=== PATIENT | male | born 1955 | race Two or more races ===

== ENCOUNTER 2022-09-08 11:31 | Emergency (ER) | payer MEDICAID, OTHER ==
[~2022-09-08] VITALS: Ht 167.6 cm; Wt 90.0 kg
[~2022-09-08 11:31] MED LIST: ASPI300S4 PR; CLIN300C70 PO; INDO50CA82 PO; METF-370 PO; PAR20T GT; PAR20T PO
[2022-09-08 13:09] LABS: Urine Bacteria None Seen /hpf (None Seen)
[2022-09-08 13:12] LABS: Basophils # (auto) 0.1 10 ^3/uL (0-0.2); Basophils % (auto) 1.3 % (0.0-2.0); Eosinophils # (auto) 0.4 10 ^3/uL (0-0.8); Eosinophils % (auto) 6.1 % (0.0-7.0); Hematocrit 40.1 % (41.0-53.0); Hemoglobin 13.6 g/dL (13.5-17.5); Lymphocytes # (auto) 2.1 10 ^3/uL (0.4-5.4); Lymphocytes % (auto) 31.1 % (10.0-50.0); Mean Corpuscular Hgb Conc. 33.9 g/dL (32.0-36.0); Mean Corpuscular Volume 91.4 fL (80.0-100.0); Monocytes # (auto) 0.5 10 ^3/uL (0-1.3); Neutrophils # (auto) 3.7 10 ^3/uL (1.6-8.6); Neutrophils % (auto) 54.5 % (37.0-80.0); Nucleated Red Blood Cells % 0.1 %; Red Blood Cells 4.39 10^6/uL (4.5-5.90); Red Cell Distribution Width 13.5 % (11.8-14.3); White Blood Cell 6.8 10^3/uL (4.4-10.8)
[2022-09-08 13:24] LABS: Urine Blood 3+ /uL (Negative); Urine Specific Gravity 1.016 (1.001-1.035)
[2022-09-08 13:29] LABS: Urine WBC Clumps PRESENT /hpf (None Seen)
[2022-09-08 13:30] LABS: Urine WBC >5 /hpf (0 - 3)
[2022-09-08 13:33] LABS: Calcium 8.6 mg/dL (8.5-10.1); INR 0.98 (0.9-1.15); Partial Thromboplastin Time 27.7 SEC (24.5-34.5)
[2022-09-08 13:39] LABS: Albumin 3.7 g/dL (3.4-5.0); BUN/Creatinine Ratio 13.8 (10.0-20.0); Bilirubin, Total 0.6 mg/dL (0.2-1.0); Potassium 4.4 mmol/L (3.5-5.1); Total Protein 7.6 g/dL (6.4-8.2)
[2022-09-08] MEDS ORDERED: LEVO750T8 PO (13:58)
[2022-09-08] MEDS ORDERED: levoFLOXacin 500 MG TAB PO ONE (14:00)
[2022-09-08 14:56] VITALS: BP 119/63
== END 2022-09-08 15:00 | disposition home or self-care (01) ==
LOC: ER 11:31
DX: N39.0 Urinary tract infection, site not specified (principal); H92.03 Otalgia, bilateral; E11.9 Type 2 diabetes mellitus without complications; I10 Essential (primary) hypertension; E78.5 Hyperlipidemia, unspecified; Z79.899 Other long term (current) drug therapy; Z79.82 Long term (current) use of aspirin; Z79.84 Long term (current) use of oral hypoglycemic drugs
CPT/HCPCS: 36415; 70450; 71045; 80053; 81001; 82962; 85025; 85610; 85730; 93005

== ENCOUNTER 2024-02-01 19:29 | Emergency (ER) | payer MEDICAID, OTHER ==
[~2024-02-01] VITALS: Ht 165.1 cm; Wt 91.8 kg
[~2024-02-01 19:29] MED LIST changes: +CLIN1CAP70 PO; -CLIN300C70 PO; +LEVO750T8 PO
--- NOTE | 2024-02-01 20:05 | ED.PDOC ---
HPI (NEURO) HPI Comments HPI: Poor Historian. 68-year-old male presents with one day history of nonspecific dizziness. He describes it as the room is moving around him. He had a similar symptoms proximally as well of years ago. Patient has history of panic attacks. Since the onset of this dizziness, patient has been experiencing some intermittent very mild nonspecific shortness of breath. Denies any active shortness of breath or chest pain at this time. Denies any use of drugs or alcohol. Past Medcial History: Diabetes, panic attacks, vertigo Past Surgical History: Herniated disc low back surgery. REVIEW OF SYSTEMS: CONSTITUTIONAL: Denies acute: fever, diaphoresis, chills, generalized weakness. HEAD: Denies acute: headache, photophobia Eyes: Denies acute: Double vision, vision loss, eye pain, eye discharge. EARS: Denies acute: tinnitus, hearing loss, ear discharge, ear pain, THROAT: Denies acute: sore throat, swelling, difficulty swallowing , pain with swa llowing, change in voice. NECK: Denies acute: neck pain, neck swelling, stiff neck. HEART: Denies acute : chest pain, palpitations, LUNGS: Denies acute: SOB, wheezing, cough, hemoptysis ABDOMEN: Denies acute: abdominal pain, Nausea, Vomiting, diarrhea, melena , hematemesis, hematochezia SKIN: Denies acute: rash, redness, lesions, itchiness. EXTREMITIES: Denies acute: calf pain, numbness, tingling, weakness, denies pain in extremity. Denies acute: Low back pain. Neuro: Denies acute: focal neurological deficit, motor or sensory focal neurological deficit, tremors, seizure like activity, confusion, change in mental status, l oss of bowel or bladder function, cauda equina like symptoms. : Denies acute: dysuria, hematuria, flank pain, increase in urinary frequency. PSYCH: Denies acute: hallucination, suicidal ideation, homicidal ideation. PHYSICAL EXAM: General: no acute distress, awake and alert. Head: normocephalic, atraumatic. Neck: supple, trachea is midline, no swelling. Throat: Normal phonation. Eyes:, no erythema, no purulent discharge, no proptosis, no icterus. Heart: regular rate, regular rhythm, no significant murmur appreciated. Lungs: no apparent respiratory distress, Able to speak in full sentences. No wheezing, no rhonchi, no crackles. No stridors Clear to auscultation bilaterally. Abdomen: non tender to palpation, non distended, soft, no guarding, no rebound, + bowel sounds. Neuro: Awake, Alert, oriented to name, self, situation, follows commands GCS=15. Speech is normal. Skin: no petechia, no purpura, no cyanosis, non-pale, not jaundice. Lower extremities: --no - Pitting edema no deformity, no focal swelling, no calf TTP. Makes eye contact. moves all four extremities. Face: no apparent facial droop. Ambulating in the ED independently. PERRLA, EOM-I CN 2-12 are grossly intact, No nystagmus. No nuchal rigidity, Kernig's sign, Brudzinski's sign, no meningeal signs. Chief Complaint: Dizziness Time Seen by MD: 19:34 Primary Care Provider: ANNA Reviewed Notes: Nurses Notes, Medications, Allergies Information Source: Patient Past Medical History PAST MEDICAL HISTORY: DM, High Lipids, HTN Surgical History: Denies all surgeries Family History Family History: Reviewed,noncontributory to illness Social History Smoker: Non-Smoker Alcohol: Denies ETOH Use Drugs: Denies Drug Use Lives In: Home Was a procedure done? Was a procedure done?: No Differential Diagnosis (SZ) General Weakness: Anemia, CVA, Dehydration, Dysrhythmia, Electrolyte imbalance, Encephalopathy, Guillain-[place], Hypoglycemia, Hypotension, Hypovolemia, Labyrinthitis, Meniere's disease, Myasthenia gravis, Myocardial infarction, Pulmonary embolus, Renal failure, Repiratory failure, TIA, VBI, Vertigo: central, Vertigo: peripheral, Vestibular neuronitis X-Ray, Labs, Meds, VS Vital Signs Date Time Temp Pulse Resp B/P (MAP) Pulse Ox O2 Delivery O2 Flow Rate FiO2 02/02/24 02:41 97.5 69 16 128/71 (90) 97 97.5 02/02/24 02:41 69 16 97 Room Air 02/01/24 21:28 67 02/01/24 20:24 87 108/76 86 126/59 76 136/59 02/01/24 20:15 75 02/01/24 20:12 98.5 87 18 108/76 (63) 97 Lab Test 02/01/24 21:33 02/01/24 20:14 Range/Units Troponin I High Sensitivity < 3 L < 3 L </=54 ng/L White Blood Count 6.5 4.4-10.8 10^3/uL Red Blood Count 4.10 L 4.5-5.90 10^6/uL Hemoglobin 12.5 L 13.5-17.5 g/dL Hematocrit 37.6 L 41.0-53.0 % Mean Corpuscular Volume 91.6 80.0-100.0 fL Mean Corpuscular Hemoglobin 30.6 28.0-32.0 pg Mean Corpuscular Hemoglobin Concent 33.4 32.0-36.0 g/dL Red Cell Distribution Width 13.0 11.8-14.3 % Platelet Count 363 140-450 10^3/uL Mean Platelet Volume 6.7 L 6.9-10.8 fL Neutrophils (%) (Auto) 54.0 37.0-80.0 % Lymphocytes (%) (Auto) 32.1 10.0-50.0 % Monocytes (%) (Auto) 6.6 0.0-12.0 % Eosinophils (%) (Auto) 6.2 0.0-7.0 % Basophils (%) (Auto) 1.1 0.0-2.0 % Neutrophils # (Auto) 3.5 1.6-8.6 10 ^3/uL Lymphocytes # (Auto) 2.1 0.4-5.4 10 ^3/uL Monocytes # (Auto) 0.4 0-1.3 10 ^3/uL Eosinophils # (Auto) 0.4 0-0.8 10 ^3/uL Basophils # (Auto) 0.1 0-0.2 10 ^3/uL Nucleated Red Blood Cells 0.1 % Sodium Level 134 L 136-145 mmol/L Potassium Level 3.6 3.5-5.1 mmol/L Chloride Level 101 98-107 mmol/L Carbon Dioxide Level 24 20-31 mmol/L Anion Gap 9 5-15 Blood Urea Nitrogen 13 9-23 mg/dL Creatinine 0.87 0.700-1.30 mg/dL Glomerular Filtration Rate Calc 94 >90 mL/min BUN/Creatinine Ratio 14.9 10.0-20.0 Serum Glucose 238 H 74-106 mg/dL Calcium Level 9.8 8.7-10.4 mg/dL Magnesium Level 1.9 1.6-2.6 mg/dL Total Bilirubin 0.5 0.2-1.0 mg/dL Aspartate Amino Transferase (AST) 10 L 13-40 U/L Alanine Aminotransferase (ALT) 12 7-40 U/L Alkaline Phosphatase 132 H 46-116 U/L Total Protein 6.9 5.7-8.2 g/dL Albumin 4.3 3.2-4.8 g/dL Plasma/Serum Blood Alcohol < 3.0 <10 mg/dL Current Medications Medications (Trade) Dose Ordered Sig/Inder Route Start Time Stop Time Status Last Admin Meclizine HCl (Antivert Tablet) 25 mg ONCE ONCE PO 02/01/24 20:00 02/01/24 20:02 DC 02/01/24 20:09 [place] [address] Ph: [phone] DIAGNOSTIC IMAGING Diagnostic Imaging Report : [id number] Signed PATIENT: DAV MOLINA ACCT: [id number] UNIT: [id number] : 1955 LOC: ER ROOM / BED: / AGE / SEX: 68 / M ADM STATUS: REG ER SERVICE 58 ORDERING PHYSICIAN: JOZEF IBARRA DO PROCEDURE(s): HWOCT - HEAD WITHOUT CONTRAST REASON: dizzy ORDER NUMBER(s): [id number], ACCESSION NUMBER(s): [id number] CLINICAL HISTORY: dizzy TECHNIQUE: Helical imaging carried out from skull base to vertex without intravenous contrast. This exam was performed according to our departmental dose optimization program. Up-to-date CT equipment and radiation dose reduction techniques are utilized as appropriate. CTDIVol: [CTDIvol] mGy DLP: 1077.59 mGy-cm WID: COMPARISON: CT HEAD WITHOUT CONTRAST on DOS: 09/08/22 FINDINGS: Mild cerebral volume loss with concordant prominence of the subarachnoid spaces and ventricles. Mild patchy low attenuation in the cerebral white matter consistent with nonspecific white matter disease. There is no midline shift or mass effect. The ivy white matter interfaces are maintained. The basal cisterns are patent. There is no evidence of acute intracranial hemorrhage or extra-axial fluid collection. The mastoid air cells and visualized paranasal sinuses are well-aerated. IMPRESSION: 1. No acute intracranial abnormality. 2. Mild cerebral volume loss and mild chronic microvascular ischemic change ATED BY: KRISTI WEAVER MD DICTATED DATE/TIME: 02/01/242111 SIGNED BY: KRISTI WEAVER MD SIGNED DATE/TIME: 02/01/242111 CC: Time of 1ST Reevaluation: 22:58 Reevaluation 1ST: Resolved Patient Education/Counseling: Diagnosis, Treatment Family Education/Counseling: No Family Present Comments Patient presented with the above HPI.---dizziness---workup was initiated. patient was found with the above mentioned diagnosis. Patient was given: Meclizine Patient ED course and VS have been stabilized. Patient has been reassessed in the ED and remained in a stable condition. Pertinent incidental findings were discussed with the patient and/or family. Patient/family voices understanding and is agreeable with plan. Patient has been observed in the ED adequate length of time to insure improvement/stability. patient was discharged home in a stable condition. All the reports of any imaging studies that were ordered by myself were reviewed by myself. Departure 1 Departure Time of Disposition: 22:34 Impression: Primary Impression: Vertigo Disposition: 01 HOME / SELF CARE / HOMELESS Condition: Stable Additional Instructions: Additional discharge instructions: You MUST follow-up with your primary care/family doctor in 1 to 2 days. If you are unable to see your primary care/family doctor, please return to our emergency room for re-assessment and re-evaluation in 1 to 2 days. Return to the emergency room here in our facility or to the nearest ER [facility] if your symptoms change or worsen. CONSULTATIONS: you MUST Follow-up for consultation as soon as possible with: neurology and ENT doctor in 1-2 days. Please call for appointment. Cardiology in 1-2 days. Please call for appointment. You MUST call the consultants office yourself to make an appointment. You may need to arrange that through your insurance and/or your primary/family doctor. If you are unable to see the talent consultant in 1 to 2 days, you must return to our emergency room (or any other ER of your choice) for re-assessment and re- evaluation. Adequate fluid hydration. Below is a copy of your radiological report for follow up: [address] [address] Ph: [phone] DIAGNOSTIC IMAGING Diagnostic Imaging Report : [id number] Signed PATIENT: DAV MOLINA ACCT: [id number] UNIT: [id number] : 1955 LOC: ER ROOM / BED: / AGE / SEX: 68 / M ADM STATUS: REG ER SERVICE 58 ORDERING PHYSICIAN: JOZEF IBARRA DO PROCEDURE(s): HWOCT - HEAD WITHOUT CONTRAST REASON: dizzy ORDER NUMBER(s): [id number], ACCESSION NUMBER(s): [id number] CLINICAL HISTORY: dizzy TECHNIQUE: Helical imaging carried out from skull base to vertex without intravenous contrast. This exam was performed according to our departmental dose optimization program. Up-to-date CT equipment and radiation dose reduction techniques are utilized as appropriate. CTDIVol: [CTDIvol] mGy DLP: 1077.59 mGy-cm WID: COMPARISON: CT HEAD WITHOUT CONTRAST on DOS: 09/08/22 FINDINGS: Mild cerebral volume loss with concordant prominence of the subarachnoid spaces and ventricles. Mild patchy low attenuation in the cerebral white matter consistent with nonspecific white matter disease. There is no midline shift or mass effect. The ivy white matter interfaces are maintained. The basal cisterns are patent. There is no evidence of acute intracranial hemorrhage or extra-axial fluid collection. The mastoid air cells and visualized paranasal sinuses are well-aerated. IMPRESSION: 1. No acute intracranial abnormality. 2. Mild cerebral volume loss and mild chronic microvascular ischemic change ATED BY: KRISTI WEAVER MD DICTATED DATE/TIME: 02/01/242111 SIGNED BY: KRISTI WEAVER MD SIGNED DATE/TIME: 02/01/242111 CC: e-Prescriptions Meclizine HCl (Meclizine 25) 25 Mg Tab 25 MG PO [id number] PRN for 3 Days, #6 TAB Prov: JOZEF IBARRA DO 02/01/24 Discharged With: Self Critical Care Note Critical Care Time?: No I personally scribed for JOZEF IBARRA DO ([email or web address]) on 02/01/24 at 21:51. Electronically submitted by Lorraine Rooney ([email or web address]). JOZEF IBARRA DO Feb 01, 2024 20:05
[2024-02-01] MEDS: MECLIZINE HCL 25 MG TAB PO ONE (20:09)
[2024-02-01 20:31] LABS: Basophils # (auto) 0.1 10 ^3/uL (0-0.2); Basophils % (auto) 1.1 % (0.0-2.0); Eosinophils # (auto) 0.4 10 ^3/uL (0-0.8); Eosinophils % (auto) 6.2 % (0.0-7.0); Hematocrit 37.6 % (41.0-53.0); Hemoglobin 12.5 g/dL (13.5-17.5); Lymphocytes # (auto) 2.1 10 ^3/uL (0.4-5.4); Lymphocytes % (auto) 32.1 % (10.0-50.0); Mean Corpuscular Hemoglobin 30.6 pg (28.0-32.0); Mean Corpuscular Hgb Conc. 33.4 g/dL (32.0-36.0); Mean Corpuscular Volume 91.6 fL (80.0-100.0); Monocytes # (auto) 0.4 10 ^3/uL (0-1.3); Monocytes % (auto) 6.6 % (0.0-12.0); Neutrophils # (auto) 3.5 10 ^3/uL (1.6-8.6); Nucleated Red Blood Cells % 0.1 %; Platelet Count (auto) 363 10^3/uL (140-450); White Blood Cell 6.5 10^3/uL (4.4-10.8)
--- NOTE | 2024-02-01 21:15 | DVH ---
CLINICAL HISTORY: dizzy TECHNIQUE: Helical imaging carried out from skull base to vertex without intravenous contrast. This e xam was performed according to our departmental dose optimization program. Up-to-date CT equipment an d radiation dose reduction techniques are utilized as appropriate. CTDIVol: [CTDIvol] mGy DLP: 1077.59 mGy-cm WID: COMPARISON: CT HEAD WITHOUT CONTRAST on DOS: 09/08/22 FINDINGS: Mild cerebral volume loss with concordant prominence of the subarachnoid spaces and ventricles. Mild patchy low attenuation in the cerebral white matter consistent with nonspecific white matter disease. There is no midline shift or mass effect. The ivy white matter interfaces are maintained. The basal cisterns are patent. There is no evidence of acute intracranial hemorrhage or extra-axial fluid yoandy ection. The mastoid air cells and visualized paranasal sinuses are well-aerated. IMPRESSION: 1. No acute intracranial abnormality. 2. Mild cerebral volume loss and mild chronic microvascular ischemic change
[2024-02-01 21:26] LABS: Alanine Aminotransferase 12 U/L (7-40); Albumin 4.3 g/dL (3.2-4.8); Alkaline Phosphatase 132 U/L (46-116); Anion Gap 9 (5-15); Aspartate Aminotransferase 10 U/L (13-40); BUN/Creatinine Ratio 14.9 (10.0-20.0); Bilirubin, Total 0.5 mg/dL (0.2-1.0); Blood Urea Nitrogen 13 mg/dL (9-23); Calcium 9.8 mg/dL (8.7-10.4); Carbon Dioxide 24 mmol/L (20-31); Chloride 101 mmol/L (98-107); Glucose 238 mg/dL (74-106); Magnesium 1.9 mg/dL (1.6-2.6); Potassium 3.6 mmol/L (3.5-5.1); Sodium 134 mmol/L (136-145); Total Protein 6.9 g/dL (5.7-8.2)
--- NOTE | 2024-02-01 21:29 | ECG ---
[facility] Test Date: 2024-02-01 Test Time: 21:28:29 Pat Name: DAV MOLINA Department: ED Room: Gender: M Hr Operations Advisor: : 1955 Requested By: JOZEF IBARRA Order Number: [id number] Reading MD: Tyrone Epps Measurements Intervals [place] Rate: 67 P: 31 AK: 165 QRS: -30 QRSD: 121 T: 31 QT: 383 QTc: 405 Interpretive Statements Sinus rhythm IVCD, consider atypical RBBB Inferior infarct, old Electronically Signed On 02-03-2024 16:16:42 PST by Tyrone Epps Please click the below link to view image of tracing.
[2024-02-01 21:38] LABS: Blood Alcohol < 3.0 mg/dL (<10)
--- NOTE | 2024-02-01 22:27 | DVH ---
EXAM: XY CHEST PORTABLE CLINICAL HISTORY: dizzy TECHNIQUE: Single AP view of the chest WID: COMPARISON: XY CHEST PORTABLE on DOS: 09/08/22 FINDINGS: Lines and tubes: Spinal stimulator lead projects over the midthoracic spine. Chest: The heart size and pulmonary vasculature is within normal limits. No pleural effusion, pneumothorax, or consolidation. The osseous structures are grossly intact. Multilevel thoracic spondylosis. IMPRESSION: No acute cardiopulmonary abnormality.
[2024-02-01] MEDS ORDERED: MECL1TAB42 PO (22:37)
--- NOTE | 2024-02-02 00:37 | ECG ---
[facility] Test Date: 2024-02-01 Test Time: 20:15:22 Pat Name: DAV MOLINA Department: ER Room: Gender: M Horn Player: MICHEL : 1955 Requested By: JOZEF IBARRA Order Number: [id number] Reading MD: Tyrone Epps Measurements Intervals [place] Rate: 75 P: 42 PA: 167 QRS: -65 QRSD: 117 T: 41 QT: 378 QTc: 423 Interpretive Statements Sinus rhythm Nonspecific IVCD with LAD Inferior infarct, old Electronically Signed On 02-03-2024 16:16:32 PST by Tyrone Epps Please click the below link to view image of tracing.
[2024-02-02] MEDS: SODIUM CHLORIDE 0.9% 1,000 ML IV ONE (01:09)
[2024-02-02 02:41] VITALS: BP 128/71; PULSE 69; RESP 16; TEMP 97.5; O2SAT 97
== END 2024-02-02 02:44 | disposition home or self-care (01) ==
LOC: ER 19:29
DX: R42 Dizziness and giddiness (principal); I10 Essential (primary) hypertension; E11.9 Type 2 diabetes mellitus without complications; E78.5 Hyperlipidemia, unspecified
CPT/HCPCS: 36415; 70450; 71045; 80053; 80320; 83735; 84484; 85025; 93005; 99285; J8597; 80307; 81001

== ENCOUNTER 2024-12-11 20:42 | Emergency (ER) | payer SELFPAY ==
[~2024-12-11] VITALS: Ht 167.6 cm; Wt 91.1 kg
[~2024-12-11 20:42] MED LIST changes: +MECL1TAB42 PO
[2024-12-11 23:53] VITALS: BP 123/60; PULSE 71; RESP 19; TEMP 98.2; O2SAT 96
[2024-12-12] MEDS: cefTRIAXone SOD 1,000 MG VL IM ONE (00:40)
[2024-12-12] MEDS: HYDROcodone-ACET 5/325MG TAB PO ONE (00:40)
--- NOTE | 2024-12-12 00:51 | DVH ---
CLINICAL INDICATION: Possible foreign body lateral aspect of foot TECHNIQUE: XY R FOOT 3 VIEW XRAY Comparison: None FINDINGS/IMPRESSION: : There is no evidence of acute fracture or dislocation. Advanced degenerative changes of the talonavicular, midfoot and tarsometatarsal joints include joint space narrowing, marginal osteophytosis and periarticular erosive change with subchondral sclerosis. Soft tissues are unremarkable. No evidence of radiodense foreign body.
--- NOTE | 2024-12-12 01:08 | DVH ---
CLINICAL INDICATION: Fall pain TECHNIQUE: XY R HIP COMPLETE XRAY Comparison: None FINDINGS/IMPRESSION: : There is no evidence of acute fracture or dislocation. Soft tissues are unremarkable.
[2024-12-12] MEDS ORDERED: AUG875T PO (01:28)
--- NOTE | 2024-12-12 01:28 | ED.PDOC ---
History of Present Illness(SKN HPI Comments PATIENT COMES WITH C/C OF RIGHT FOOT PAIN S/P WOUND INJURY TO LATERAL HEEL. PATIENT REPORTS HE IS DIABETIC AND CONCERNED ABOUT HIS PAIN. NO OPEN WOUND AT THIS TIME. DENIES FEVER, CHILLS, NAUSEA, VOMITING, CHEST PAIN, SHORTNESS BREATH OR DIFFICULTY BREATHING. REPORTS GLUCOSE READINGS AT HOME HAS BEEN AROUND 110 STATES TAKES METFORMIN 1000 MG TWICE DAILY 1ST TYPE 2 DIABETES. Chief Complaint: Lower Extremity Time Seen by MD: 22:50 Primary Care Provider: ANNA History of Present Illness: Nurses Notes, Medications, Allergies Allergies: Coded Allergies: NO KNOWN ALLERGIES (Unverified , 11/09/14) Home Meds Active Scripts Amoxicillin & Pot Clavulanate (AUGMENTIN TABLET) 875 Mg Tb, 875 MG PO BID for 7 Days, #14 TAB Prov:MELINDA KUMARI 12/12/24 Meclizine HCl (Meclizine 25) 25 Mg Tab, 25 MG PO [id number] PRN for 3 Days, #6 TAB Prov:JOZEF IBARRA DO 02/01/24 Levofloxacin (Levaquin 750 mg) 750 Mg Tab, 500 MG PO DAILY for 7 Days, #5 TAB Prov:TAMERA GONZALEZ MD 09/08/22 Clindamycin Hcl (Clindamycin Hcl) 300 Mg Cap, 300 MG PO TID for 10 Days, CAP Prov:IVETTE VELASCO MD 11/15/14 Indomethacin (Indomethacin) 50 Mg Cap, 50 MG PO TID for 14 Days, CAP Prov:IVETTE VELASCO MD 11/15/14 Reported Medications Metformin Hydrochloride (Metformin Hcl) 500 Mg Tab, 500 MG PO DAILY for 30 Days, MG 11/10/14 Paroxetine (PAXIL TABLET) 20 Mg Tb, 20 MG PO DAILY for 30 Days 11/10/14 Aspirin (Aspirin) 300 Mg Sup, 81 MG SD DAILY, MG 11/10/14 Paroxetine (PAXIL TABLET) 20 Mg Tb, 40 MG GT for 30 Days 02/16/14 Information Source: Patient Mode of Arrival: Ambulatory Past Medical History PAST MEDICAL HISTORY: DM, High Lipids, HTN Surgical History: Denies all surgeries Family History Family History: Reviewed,noncontributory to illness Social History Smoker: Non-Smoker Alcohol: Denies ETOH Use Drugs: Denies Drug Use Lives In: Home All Other Systems: Reviewed and Negative (SEE HPI) Physical Exam General Appearance: No Apparent Distress, Normal HEENT: Pharynx Normal Neck: Full Range of Motion, Non-Tender Respiratory: Lungs Clear, No Respiratory Distress, Normal Breath Sounds Cardiovascular: No Edema, No JVD, No Murmur, No Gallop, Normal Peripheral Pulses, Regular Rate/Rhythm Breast Exam: Deferred Gastrointestinal: No Organomegaly, Non Tender, No Pulsatile Mass, Normal Bowel Sounds, Soft Genitalia: Deferred Pelvic: Deferred Rectal: Deferred Extremities: No calf tenderness, Normal capillary refill, Normal range of motion, Non-tender, No pedal edema Musculoskeletal : Location: Right Extremity Location: Hip (TENDERNESS ON PALPATION INTO THE GROIN FULL RANGE OF MOTION WITH MILD DISCOMFORT NO ROTATION OR SHORTENING OF RIGHT LEG. STRENGTH SENSORY MOTION INTACT. POSITIVE PEDAL PULSE.) Apperance: Normal Neurologic: Alert, No Motor Deficits, Normal Affect, Normal Mood, No Sensory Deficits Cerebellar Function: Normal Reflexes: NOT DONE Skin: Dry, Normal Color, Warm, Wounds (HEALED WOUND RIGHT FOOT LATERAL ASPECT WITH TRACE EDEMA AND ERYTHEMA NO NOTED DRAINAGE STRENGTH SENSORY MOTION INTACT) Lymphatic: No Adenopathy Was a procedure done? Was a procedure done?: No Differential Diagnosis (INTG) Differential Diagnosis: Abrasion, Cellulitis, Hematoma, Laceration, Puncture Wound Differential Diagnosis: Abscess X-Ray, Labs, Meds, VS Vital Signs Date Time Temp Pulse Resp B/P (MAP) Pulse Ox O2 Delivery O2 Flow Rate FiO2 12/11/24 23:53 71 19 96 Room Air 12/11/24 23:53 98.2 71 19 123/60 (81) 96 98.2 12/11/24 20:45 97.9 78 14 136/56 97 97.9 Current Medications Medications (Trade) Dose Ordered Sig/Inder Route Start Time Stop Time Status Last Admin Ceftriaxone Sodium (Rocephin) 1,000 mg ONCE ONCE IM 12/12/24 00:30 12/12/24 00:31 DC 12/12/24 00:40 Acetaminophen/ Hydrocodone Bitart ([place] 5/325MG Tab) 1 tab ONCE ONCE PO 12/12/24 00:30 12/12/24 00:31 DC 12/12/24 00:40 X-Ray, Labs, Meds, VS Comment TECHNIQUE: XY R HIP COMPLETE XRAY Comparison: None FINDINGS/IMPRESSION: : There is no evidence of acute fracture or dislocation. Soft tissues are unremarkable. TECHNIQUE: XY R FOOT 3 VIEW XRAY Comparison: None FINDINGS/IMPRESSION: : There is no evidence of acute fracture or dislocation. Advanced degenerative changes of the talonavicular, midfoot and tarsometatarsal joints include joint space narrowing, marginal osteophytosis and periarticular erosive change with subchondral sclerosis. Soft tissues are unremarkable. No evidence of radiodense foreign body. NO ACUTE FINDINGS NOTED ABOVE IMAGING. PATIENT GIVEN ROCEPHIN 1 G IM AND NORCO 5 MG P.O. REPORTS IMPROVEMENT IN PAIN AND FUNCTION REQUESTING DISCHARGE AT THIS TIME. TRIAL OF AUGMENTIN ADVISED TO TAKE MEDICATION PRESCRIBED SIDE EFFECTS DISCUSSED. [id number] TYLENOL OR MOTRIN NEEDED FOR THE PAIN PER LABELED DOSING INSTRUCTIONS. FOLLOW UP WITH YOUR PCP FOR WOUND RE-EVALUATION IN 2-3 DAYS OR RETURN TO THE ER OR URGENT CARE. ER RETURN PRECAUTIONS GIVEN PATIENT INDICATES UNDERSTANDING AGREES WITH DISCHARGE PLAN OF CARE. Images Reviewed?: Images reviewed and evaluated by me Time of 1ST Reevaluation: 23:20 Reevaluation 1ST: Unchanged Reevaluation 2ND: Improved Patient Education/Counseling: Diagnosis, Treatment, Need For Follow Up Family Education/Counseling: No Family Present SEPSIS Sepsis Screen Date sepsis recognized/suspect: Dec 11, 2024 Time Sepsis recognized/suspect: 2046 Recent Procedure: No On Antibiotic Therapy: No Respiratory Rate >20: No Heart Rate >90: No Temp<36 C (96.8 F) or >38.3 C: No SBP <90 or MAP <65 mmHG: No New Acute Mental Status Change: No Is the patient on CPAP, BIPAP,: No Physician Orders R Hip Complete Xray (12/12/24 00:16) R Foot 3 View Xray (12/12/24 00:16) Vital Signs Date Time Temp Pulse Resp B/P (MAP) Pulse Ox O2 Delivery O2 Flow Rate FiO2 12/11/24 23:53 71 19 96 Room Air 12/11/24 23:53 98.2 71 19 123/60 (81) 96 98.2 12/11/24 20:45 97.9 78 14 136/56 97 97.9 Medications Medications Dose Ordered Sig/Inder Route Start Time Stop Time Status Last Admin Dose Admin Acetaminophen/ Hydrocodone Bitart 1 tab ONCE ONCE PO 12/12/24 00:30 12/12/24 00:31 DC 12/12/24 00:40 Ceftriaxone Sodium 1,000 mg ONCE ONCE IM 12/12/24 00:30 12/12/24 00:31 DC 12/12/24 00:40 Departure 1 Departure Time of Disposition: : Impression: Primary Impression: Infected wound Additional Impressions: Osteoarthritis of right hip Qualified Codes: M16.11 - Unilateral primary osteoarthritis, right hip Osteoarthritis of right foot Qualified Codes: M19.071 - Primary osteoarthritis, right ankle and foot Disposition: 01 HOME / SELF CARE / HOMELESS Condition: Stable e-Prescriptions Amoxicillin & Pot Clavulanate (AUGMENTIN TABLET) 875 Mg Tb 875 MG PO BID for 7 Days, #14 TAB Prov: MELINDA KUMARI 12/12/24 Discharged With: Self Critical Care Note Critical Care Time?: No Stability Stability form required: MELINDA [place] Dec 12, 2024 01:28
--- NOTE | 2024-12-12 01:50 | ED.PDOC ---
History of Present Illness HPI Comments 68 y/o M presents with c/c of right foot pain s/p injury to his lateral heel. History of diabetes. No reported open wounds. Denies any fever, chills, swelling, discoloration, or further associated symptoms. Chief Complaint: Lower Extremity Time Seen by MD: 00:15 Primary Care Provider: ANNA Reviewed Notes: Nurses Notes, Medications, Allergies Allergies: Coded Allergies: NO KNOWN ALLERGIES (Unverified , 11/09/14) Home Meds Active Scripts Meclizine HCl (Meclizine 25) 25 Mg Tab, 25 MG PO [id number] PRN for 3 Days, #6 TAB Prov:JOZEF IBARRA DO 02/01/24 Levofloxacin (Levaquin 750 mg) 750 Mg Tab, 500 MG PO DAILY for 7 Days, #5 TAB Prov:TAMERA GONZALEZ MD 09/08/22 Clindamycin Hcl (Clindamycin Hcl) 300 Mg Cap, 300 MG PO TID for 10 Days, CAP Prov:IVETTE VELASCO MD 11/15/14 Indomethacin (Indomethacin) 50 Mg Cap, 50 MG PO TID for 14 Days, CAP Prov:IVETTE VELASCO MD 11/15/14 Reported Medications Metformin Hydrochloride (Metformin Hcl) 500 Mg Tab, 500 MG PO DAILY for 30 Days, MG 11/10/14 Paroxetine (PAXIL TABLET) 20 Mg Tb, 20 MG PO DAILY for 30 Days 11/10/14 Aspirin (Aspirin) 300 Mg Sup, 81 MG WI DAILY, MG 11/10/14 Paroxetine (PAXIL TABLET) 20 Mg Tb, 40 MG GT for 30 Days 02/16/14 Information Source: Patient Mode of Arrival: Ambulatory Severity: Moderate Timing: Hours Duration: Since onset Prehospital treatment: None Past Medical History PAST MEDICAL HISTORY: DM, High Lipids, HTN Surgical History: Denies all surgeries Family History Family History: Reviewed,noncontributory to illness Social History Smoker: Non-Smoker Alcohol: Denies ETOH Use Drugs: Denies Drug Use Lives In: Home All Other Systems: Reviewed and Negative (Comprehensive review of systems are negative unless stated in HPI) Was a procedure done? Was a procedure done?: No Differential Dx Considerations may include: cellulitis, dermatitis, neurovascular injury, among others X-Ray, Labs, Meds, VS Vital Signs Date Time Temp Pulse Resp B/P (MAP) Pulse Ox O2 Delivery O2 Flow Rate FiO2 12/11/24 23:53 71 19 96 Room Air 12/11/24 23:53 98.2 71 19 123/60 (81) 96 98.2 12/11/24 20:45 97.9 78 14 136/56 97 97.9 Current Medications Medications (Trade) Dose Ordered Sig/Inder Route Start Time Stop Time Status Last Admin Ceftriaxone Sodium (Rocephin) 1,000 mg ONCE ONCE IM 12/12/24 00:30 12/12/24 00:31 DC 12/12/24 00:40 Acetaminophen/ Hydrocodone Bitart ([place] 5/325MG Tab) 1 tab ONCE ONCE PO 12/12/24 00:30 12/12/24 00:31 DC 12/12/24 00:40 Time of 1ST Reevaluation: 00:45 Reevaluation 1ST: Unchanged Patient Education/Counseling: Diagnosis, Treatment, Need For Follow Up Family Education/Counseling: No Family Present SEPSIS Sepsis Screen Date sepsis recognized/suspect: Dec 11, 2024 Time Sepsis recognized/suspect: 2046 Recent Procedure: No On Antibiotic Therapy: No Respiratory Rate >20: No Heart Rate >90: No Temp<36 C (96.8 F) or >38.3 C: No SBP <90 or MAP <65 mmHG: No New Acute Mental Status Change: No Is the patient on CPAP, BIPAP,: No Physician Orders R Hip Complete Xray (12/12/24 00:16) R Foot 3 View Xray (12/12/24 00:16) Vital Signs Date Time Temp Pulse Resp B/P (MAP) Pulse Ox O2 Delivery O2 Flow Rate FiO2 12/11/24 23:53 71 19 96 Room Air 12/11/24 23:53 98.2 71 19 123/60 (81) 96 98.2 12/11/24 20:45 97.9 78 14 136/56 97 97.9 Medications Medications Dose Ordered Sig/Inder Route Start Time Stop Time Status Last Admin Dose Admin Acetaminophen/ Hydrocodone Bitart 1 tab ONCE ONCE PO 12/12/24 00:30 12/12/24 00:31 DC 12/12/24 00:40 Ceftriaxone Sodium 1,000 mg ONCE ONCE IM 12/12/24 00:30 12/12/24 00:31 DC 12/12/24 00:40 Critical Care Note Critical Care Time?: No Stability Stability form required: No Heart Score Heart Score: Heart Score Response (Comments) Value History N/A 0 EKG N/A 0 Age N/A 0 Risk Factors N/A 0 Troponin N/A 0 Total 0 I personally scribed for ER ([email or web address]) on 12/12/24 at 01:50. Electronically submitted by Manish Tran ([email or web address]). ER Dec 12, 2024 01:50
== END 2024-12-12 01:41 | disposition home or self-care (01) ==
LOC: ER 20:42
DX: L08.9 Local infection of the skin and subcutaneous tissue, unspecified (principal); M16.11 Unilateral primary osteoarthritis, right hip; M19.071 Primary osteoarthritis, right ankle and foot; E11.9 Type 2 diabetes mellitus without complications; I10 Essential (primary) hypertension; Z79.899 Other long term (current) drug therapy
CPT/HCPCS: 73502; 73630; 96372; 99284; J0696